=== PATIENT | female | born 1980 | race Hispanic/Latino ===

== ENCOUNTER 2023-01-18 16:51 | Emergency (ER) | payer SELFPAY ==
--- OUTSIDE RECORDS SUMMARY | 2023-01-18 16:55 | XMS REPORT | Continuity of Care Document ---
:1980 Author Organization [facility] t Address [address] [place] [address]. [address] [place] [address] Care Team Providers Name Role Phone PCP, PATIENT DOES NOT HAVE A Primary Care Physician UnavailREKHA Caldwell Attending Clinician Unavailable Rekha Wayne Attending Clinician Provider, Ezeernst Temp Attending Clinician Unavailable Doctor Unassigned, [place] Attending Clinician Unavailable KANIKA FERRER Attending Clinician Unavailable KANIKA FERRER Attending Clinician Unavailable JOSH SOTO Attending Clinician Unavailable EDUARDO HERNANDEZ Attending Clinician Unavailable Sharron Jack MD Attending Clinician RADHA MIRANDA Attending Clinician Unavailable REKHA ROBIN Admitting Clinician Unavailable Payers Payer Name Policy Type Policy Number Effective Date Expiration Date S ource [employer] [place] [id number] 2022 00:00:00 WOMEN Problems Condition Condition Condition Status Onset Resolution Last Treating Co mments Source Name Details Category Date Date Treatment Clinician Date Obesity Obesity Disease Active 2021-05 Univers (BMI (BMI 0-31 ity of 30-39.9) 30-39.9) 00:00: [place] [address] Medical Branch Tobacco Tobacco Disease Active 2021-05 Univers use use 0-31 ity of disorder disorder 00:00: [place] [address] Medical Branch Elevated Elevated Disease Active 2021-05 Unive rs blood blood 0-31 ity of pressure pressure 00:00: [place] reading reading 00 Medical without without Branch diagnosis diagnosis of of hypertensi hypertensi on on History of History of Disease Active 2021-05 U nivers bilateral bilateral 0-31 ity of tubal tubal 00:00: [place] ligation ligation 00 Medica l Branch No known No known Disease Unive rs active active ity of problems problems [facility] Allergies, Adverse Reactions, Alerts Allergy Allergy Status Severity Reaction(s) Onset Inactive Treating Comm ents Source Name Type Date Date Clinician RUY DRUG Active Other-Cmnt 2021-05 Unive rs INGREDI 0-29 ity of 00:00: [place] 00 Medical Branch Codeine Propensi Active Other - See 2021-05 Pain per Univers ty to comments 0- pt report ity o f adverse 00:00: [place] reaction 00 Medical s Branch NO KNOWN Drug Active Univers ALLERGIE Class ity of S [facility] Social History Social Habit Start Date Stop Date Quantity Comments Source History of Cigarette Smoker Universi ty of tobacco use [facility] Alcohol intake 2022-05-01 2022-05-01 Ex-drinker [facility] 00:00:00 00:00:00 (finding) [facility] Exposure to 2022-03-13 2022-03-23 Not sure [facility] SARS-CoV-2 00:00:00 10:54:00 [facility] (event) Branch Tobacco use and 2022-03-21 2022-03-21 Smokeless tobacco Un iversity of exposure 00:00:00 00:00:00 non-user [facility] Tobacco Comment 2022-03-21 2022-03-21 Social smoker Univer sity of 00:00:00 00:00:00 [facility] Sex Ass[birth year] At [birth year] Universit y of 00:00:00 00:00:00 [facility] Smoking Status Start Date Stop Date Source Tobacco smoking consumption [facility] Occasional tobacco smoker 2022-03-21 00:00:00 Un iversity of [facility] Medications Ordered Filled Start Stop Current Ordering Indication Dosage Frequency Signature Comments Components Source Medication Medication Date Date Medication? Clinician (SIG) Name Name tizanidine 2021-05 Yes Take by Univ ers HCl 0-29 mouth. ity of (TIZANIDINE 13:19: [place] ORAL) Medical Branch tizanidine 2021-05 Yes Take by Univ ers HCl 0-29 mouth. ity of (TIZANIDINE 13:19: [place] ORAL) Medical Branch tizanidine 2021-05 Yes Take by Univ ers HCl 0-29 mouth. ity of (TIZANIDINE 13:19: [place] ORAL) 32 Medical Branch GABAPENTIN 2021-05 Yes Take by Univ ers ORAL 0-29 mouth. ity of 13:13: [place] 38 Medical Branch GABAPENTIN 2021-05 Yes Take by Univ ers ORAL 0-29 mouth. ity of 13:13: [place] [address] Medical Branch GABAPENTIN 2021-05 Yes Take by Univ ers ORAL 0-29 mouth. ity of 13:13: [place] 38 Medical Branch acetaminoph 2018-0 Yes 1{tbl} Take 1 Un dejuan en-codeine 9-13 tablet by ity of (TYLENOL-CO 00:00: mouth [place] DEINE #3) 00 every 4 Medical 300-30 mg (four) Branch tablet hours as needed for Pain (scale 7-10). naproxen 2018-0 Yes 550mg Take 1 Univer s sodium 550 9-13 tablet by ity of mg tablet 00:00: mouth 2 00 (two) Medical times Branch daily with meals. cyclobenzap 2018-0 Yes 5mg Take 1 Univ ers rine 5 mg 9-13 tablet by ity o f tablet 00:00: mouth 3 00 (three) Medical times Branch daily. acetaminoph 2018-0 Yes 1{tbl} Take 1 Un dejuan en-codeine 9-13 tablet by ity of (TYLENOL-CO 00:00: mouth [place] DEINE #3) 00 every 4 Medical 300-30 mg (four) Branch tablet hours as needed for Pain (scale 7-10). naproxen 2018-0 Yes 550mg Take 1 Univer s sodium 550 9-13 tablet by ity of mg tablet 00:00: mouth 2 00 (two) Medical times Branch daily with meals. cyclobenzap 2018-0 Yes 5mg Take 1 Univ ers rine 5 mg 9-13 tablet by ity o f tablet 00:00: mouth 3 [place] 00 (three) Medical times Branch daily. acetaminoph 2018-0 Yes 1{tbl} Take 1 Un dejuan en-codeine 9-13 tablet by ity of (TYLENOL-CO 00:00: mouth [place] DEINE #3) 00 every 4 Medical 300-30 mg (four) Branch tablet hours as needed for Pain (scale 7-10). naproxen 2018-0 Yes 550mg Take 1 Univer s sodium 550 9-13 tablet by ity of mg tablet 00:00: mouth 2 [place] 00 (two) Medical times Branch daily with meals. cyclobenzap Yes 5mg Take 1 Univ ers rine 5 mg 9-13 tablet by ity o f tablet 00:00: mouth 3 [place] 00 (three) Medical times Branch daily. acetaminoph 2021- No 1{tbl} Take 1 U nivers en-codeine 9-13 10-29 tablet by ity of (TYLENOL-CO 00:00: [place] DE[place] #3[place] 00 :00 every 4 Medical 300-30 mg (four) Branch tablet hours as needed for Pain (scale 7-10). naproxen 2021- No 550mg Take 1 Unive rs sodium 550 9-13 10-29 tablet by ity of mg tablet 00:00: 00:00 mouth 2 [place] :[place] (two) Medical times Branch daily with meals. cyclobenzap 2021- No 5mg Take 1 Uni vers rine 5 mg 9-13 10-29 tablet by ity of tablet 00:00: 00:00 mouth 3 [place] 00 :00 (three) Medical times Branch daily. acetaminoph 2021- No 1{tbl} Take 1 U nivers en-codeine 9-13 10-29 tablet by ity of (TYLENOL-CO 00:00: 00:[place] DEINE #3[place] 00 :00 every 4 Medical 300-30 mg (four) Branch tablet hours as needed for Pain (scale 7-10). naproxen 2021- No 550mg Take 1 Unive rs sodium 550 9-13 10-29 tablet by ity of mg tablet 00:00: 00:00 mouth 2 [place] 00 :00 (two) Medical times Branch daily with meals. cyclobenzap 2021- No 5mg Take 1 Uni vers rine 5 mg 9-13 10-29 tablet by ity of tablet 00:00: 00:00 mouth 3 [place] 00 :00 (three) Medical times Branch daily. Immunizations Ordered Filled Immunization Date Status Comments [facility] e Immunization Name Name SARS-COV-2 COVID-19 2021-11-17 Completed Unive rsity of PFIZER MICHELE-SUCROSE 00:00:00 [place] Medical VACCINE (MIKE TOP) Branch SARS-COV-2 COVID-19 2021-11-17 Completed Unive rsity of PFIZER MICHELE-SUCROSE 00:00:00 [place] Medical VACCINE (MIKE TOP) Branch SARS-COV-2 COVID-19 2021-11-17 Completed Unive rsity of PFIZER MICHELE-SUCROSE 00:00:00 [place] Medical VACCINE (MIKE TOP) Branch SARS-COV-2 COVID-19 2021-11-17 Completed Unive rsity of PFIZER MICHELE-SUCROSE 00:00:00 [place] Medical VACCINE (MIKE TOP) Branch SARS-COV-2 COVID-19 2021-11-17 Completed Unive rsity of PFIZER MICHELE-SUCROSE 00:00:00 [place] Medical VACCINE (MIKE TOP) Branch SARS-COV-2 COVID-19 2021-11-17 Completed Unive rsity of PFIZER MICHELE-SUCROSE 00:00:00 [place] Medical VACCINE (MIKE TOP) Branch SARS-COV-2 COVID-19 2021-10-27 Completed Unive rsity of PFIZER MICHELE-SUCROSE 00:00:00 [place] Medical VACCINE (MIKE TOP) Branch SARS-COV-2 COVID-19 2021-10-27 Completed Unive rsity of PFIZER MICHELE-SUCROSE 00:00:00 [place] Medical VACCINE (MIKE TOP) Branch SARS-COV-2 COVID-19 2021-10-27 Completed Unive rsity of PFIZER MICHELE-SUCROSE 00:00:00 [place] Medical VACCINE (MIKE TOP) Branch SARS-COV-2 COVID-19 2021-10-27 Completed Unive rsity of PFIZER MICHELE-SUCROSE 00:00:00 [place] Medical VACCINE (MIKE TOP) Branch SARS-COV-2 COVID-19 2021-10-27 Completed Unive rsity of PFIZER MICHELE-SUCROSE 00:00:00 [place] Medical VACCINE (MIKE TOP) Branch SARS-COV-2 COVID-19 2021-10-27 Completed Unive rsity of PFIZER MICHLEE-SUCROSE 00:00:00 [place] Medical VACCINE (MIKE TOP) Branch Vital Signs Vital Name Observation Time Observation Value Comments Source Systolic blood 2022-03-21 18:07:00 145 mm[Hg] Univer sity of pressure [facility] Diastolic blood 2022-03-21 18:07:00 95 mm[Hg] Unive rsity of pressure [facility] Heart rate 2022-03-21 18:06:00 90 /min [facility] Body temperature 2022-03-21 18:06:00 36.39 [facility] Respiratory rate 2022-03-21 18:06:00 20 /min [facility] Body height 2022-03-21 18:06:00 160 cm [facility] Body weight 2022-03-21 18:06:00 79.833 kg [facility] BMI 2022-03-21 18:06:00 31.18 kg/m2 [facility] Procedures Procedure Date / Time Performing Clinician Source Performed HIV 1/2 AG-AB WITH 2022-03-21 18:50:00 Rekha Robin [facility] REFLEX [facility] PAP SMEAR-LIQUID 2022-03-21 18:50:00 Rekha Robin [facility] BASED-CP [facility] GALV ONLY - SYPHILIS 2022-03-21 18:50:00 Rekha Robin [facility] IGG/IGM [facility] CONSENT/REFUSAL FOR 2022-03-21 17:51:33 Doctor Unassigned, No [facility] DIAGNOSIS AND TREATMENT Name [facility] AUTHORIZATION FOR 2022-01-27 05:01:00 Doctor Unassigned, No [facility] RELEASE OF PHI Name [facility] Encounters Start End Encounter Admission Attending Care Care Encounter Source Date/Time Date/Time Type Type Clinicians Facility Department ID 2022-05-01 2022-05-01 Outpatient Savana ROBIN [facility] [id number] Univers 13:35:00 23:59:00 REKHA corey [facility] 2022-05-01 2022-05-01 Hospital Luis Enrique [facility] [id number] Univers 13:35:00 23:59:00 Encounter Rekha BENAVIDES [id number] leora marrero [facility] [id number] [facility] [id number] [facility] 800 Branch 2022-03-21 2022-03-21 Outpatient Savana ROBIN [facility] [id number] Univers 12:45:00 13:49:32 [facility] 2022-03-21 2022-03-21 Office [facility] [id number] Univers 12:45:00 13:49:32 Visit Rekha Robin [facility] [id number] ity of REGIONAL [id number] Edgardo as MATERNAL [id number] Med ical & CHILD [address] [place] [address] 2022-03-21 2022-03-21 Orders Doctor CHELSIE [id number] Univers 00:00:00 00:00:00 Only Unassigned, PAWAN [id number] ity of [facility] [id number] Edgardo as [id number] [address] 2022-02-24 2022-02-24 Outpatient R KANIKA FERRER [facility] [id number] Univers 13:15:00 13:15:00 KANIKA FERRER ity [facility] 2022-02-11 2022-02-11 Outpatient Savana SOTO [facility] [id number] Univers 14:00:00 14:00:00 ROSJERRODNDA ity o f [facility] 2022-02-06 2022-02-06 Outpatient R EDUARDO HERNANDEZ [facility] [id number] Univers 15:00:00 15:00:00 ity [facility] 2022-02-02 2022-02-02 Letter Sharron Jack [facility] GRIFFIN [id number] Univers 00:00:00 00:00:00 (Out) DAMEON [id number] it y of [place] [id number] [place] [facility] [id number] [facility] 134 Branch 2022-01-27 2022-01-27 Orders Doctor CHELSIE [id number] Univers 00:00:00 00:00:00 Only Unassigned, PAWAN [id number] ity of [facility] [id number] Edgardo as [id number] [address] 2021-11-17 2021-11-17 Outpatient Savana MIRANDA [facility] [id number] Univers 15:00:00 15:00:00 RADHA corey [facility] 2021-11-17 2021-11-17 Outpatient R [facility] [id number] Univers 15:00:00 15:00:[address] [facility] Results Test Description Test Time Test Comments Results Result Comments Source GALV ONLY - [place]PH[place] IGG/IGM 2022-03-22 14:42:10 Test Item Value Reference Range Interpretation Comme nts Syphilis IgG/IgM (test code = Non-reactive Non-reactive 00088-8) ANIL (test code = ANIL) Non-reactive - No serologic evidence of T. pallidum infection. Cannot exclude incubating or early syphilis. Submit a second specimen in 2-4 weeks if syphilis is clinically suspected. Equivocal - Further testing to follow. Reactive - Further testing to follow. Lab Interpretation (test code = Normal 24001-3) [facility] [id number] 14:42:10 Test Item Value Reference Range Interpretation Comments Syphilis IgG/IgM (test Non-reactive Non-reactive code = 57488-4) ANIL (test code = ANIL) Non-reactive - No serologic evidence of T. pallidum infection. Cannot exclude incubating or early syphilis. Submit a second specimen in 2-4 weeks if syphilis is clinically suspected. Equivocal - Further testing to follow. Reactive - Further testing to follow. Lab Interpretation (test Normal code = 39258-8) [facility] AG-AB WITH [id number] 00:35:41 Test Item Value Reference Range Interpretation Comments HIV Negative Negative Semi-quantitative (test code = 73877-8) ANIL (test code = Non-reactive for HIV-1 ANIL) antigen and HIV-1/HIV-2 antibodies. ?No laboratory evidence of HIV infection. ?Repeat in 2-4 weeks if acute HIV infection is suspected. [facility] 1/2 AG-AB WITH [id number] 00:35:41 Test Item Value Reference Range Interpretation Comments HIV Negative Negative Semi-quantitative (test code = 41031-2) ANIL (test code = Non-reactive for HIV-1 ANIL) antigen and HIV-1/HIV-2 antibodies. ?No laboratory evidence of HIV infection. ?Repeat in 2-4 weeks if acute HIV infection is suspected. [facility]
--- NOTE | 2023-01-18 19:18 | RAD REPORT ---
EXAM DESCRIPTION: RAD - Shoulder Left 2 View - 01/18/2023 6:55 pm CLINICAL HISTORY: shoulder pain COMPARISON: <Comparisons> FINDINGS: No acute fracture or dislocation seen.
--- NOTE | 2023-01-18 19:20 | EDPHYS ---
Physician Documentation [facility] Name: Cheyenne Givens Age: 42 yrs Sex: Female : 1980 Arrival Date: 01/18/2023 Time: 16:51 Bed DX5 Private MD: ED Physician Agus Zarate HPI: 01/18 17:45 This 42 yrs old Female presents to ER via Ambulatory with complaints of cp Shoulder Pain. 17:45 The patient or guardian complains of an injury, pain, that is acute. left shoulder. cp Context: resulted from being arrested. patient reports being arrested this past Wednesday and pain started after being hand cuffed with her hands behind her, The patient reports no decreased range of motion. 17:45 Associated signs and symptoms: Pertinent negatives: chest pain, neck pain, shortness of cp breath, tingling, Weakness in left hand and left arm. Severity of symptoms: in the emergency department the symptoms are unchanged, despite home interventions. Historical: - Allergies: 19:32 No Known Allergies; kl - Immunization history:: Adult Immunizations not immunized. - Social history:: Smoking status: Patient denies any tobacco usage or history of. ROS: 17:50 MS/extremity: Positive for pain, swelling, tenderness, of the left shoulder. cp 17:50 Constitutional: Negative for body aches, chills, fever, poor PO intake. cp 17:50 Neck: Negative for pain with movement, pain at rest, stiffness. 17:50 Cardiovascular: Positive for chest pain, of the left lateral upper chest, Negative for edema, palpitations. 17:50 Constitutional: Negative for fever, chills, and weight loss. cp 17:50 Respiratory: Negative for cough, shortness of breath, wheezing. cp 17:50 Abdomen/GI: Negative for abdominal pain, nausea, vomiting, and diarrhea. 17:50 Back: Negative for pain at rest, pain with movement. 17:50 Neuro: Negative for altered mental status, dizziness, headache, numbness, tingling, weakness. 17:50 All other systems are negative. cp Exam: 17:55 Constitutional: The patient appears in no acute distress, alert, awake, cp non-diaphoretic, non-toxic, well developed, well nourished. 17:55 Head/Face: Normocephalic, atraumatic. cp 17:55 Eyes: Periorbital structures: appear normal, Sclera: no appreciated abnormality, Lids and lashes: appear normal, bilaterally. 17:55 ENT: External ear(s): are unremarkable, Nose: is normal, Mouth: Lips: moist, Oral mucosa: pink and intact, moist. 17:55 Neck: C-spine: vertebral tenderness, is not appreciated, crepitus, is not appreciated, ROM/movement: is normal, is supple, without pain, no range of motions limitations. 17:55 Chest/axilla: Inspection: normal, Palpation: crepitus, is not appreciated, tenderness, that is mild, of the left lateral upper posterior chest and left lateral upper anterior chest. 17:55 Respiratory: the patient does not display signs of respiratory distress, Respirations: normal, no use of accessory muscles, no retractions, no shallow respirations, labored breathing, is not present, Breath sounds: are clear throughout, no decreased breath sounds, no stridor, no wheezing. 17:55 Abdomen/GI: Inspection: abdomen appears normal, Palpation: abdomen is soft and non-tender. 17:55 Musculoskeletal/extremity: Extremities: noted in the left shoulder: pain, tenderness, mild swelling lateral shoulder, ROM: limited passive range of motion due to pain, in the left shoulder, Pulses: noted to be 2+ in the left radial artery, the left hand and left arm Sensation intact. MDM: 18:04 Patient medically screened. cp 19:19 Differential diagnosis: Anterior dislocation with fracture, Anterior dislocation kb without fracture, Posterior dislocation with fracture, Posterior dislocation without fracture, humeral head fracture, tendonitis, strain. Data reviewed: vital signs, nurses notes. Counseling: I had a detailed discussion with the patient and/or guardian regarding the historical points, exam findings, and any diagnostic results supporting the discharge/admit diagnosis, radiology results, the need for outpatient follow up, a family practitioner, to return to the emergency department if symptoms worsen or persist or if there are any questions or concerns that arise at home. 01/18 18:07 Order name: Shoulder Left 2 View; Complete Time: 19:19 EDMS 01/18 18:28 Order name: Sling; Complete Time: 19:30 cp Administered Medications: 19:20 Drug: Ketorolac IM 30 mg Route: IM; Site: left deltoid; kl 19:31 Follow up: Response: No adverse reaction kl Disposition Summary: 01/18/23 19:20 Discharge Ordered Location: Home kb Condition: Stable kb Diagnosis - Pain in left shoulder kb Followup: kb - With: Emergency Department - When: As needed - Reason: Worsening of condition Followup: kb - With: Private Physician - When: 2 - 3 days - Reason: Recheck today's complaints, Continuance of care, Re-evaluation by your physician Discharge Instructions: - Discharge Summary Sheet kb - Musculoskeletal Pain kb - Shoulder Pain, [id number] kb Forms: - Medication Reconciliation Form kb - Thank You Letter kb - Antibiotic Education kb - Prescription Opioid Use kb - Patient Portal Instructions kb - Leadership Thank You Letter kb Signatures: Dispatcher [employer] EDMS Opal Tapia FNP-C BACTERIOLOGIST INDUSTRIAL-Tiara Duval RN RN Andrew Falcon PA PA cp Corrections: (The following items were deleted from the chart) 18:53 18:11 Shoulder Left 2 View+RAD.RAD.BRZ ordered. EDSC EDSC 19:32 19:32 PMHx: GALLSTONES; kl 01/19 18:45 01/18 19:21 Constitutional: Negative for fever, chills, and weight loss, kb cp
--- NOTE | 2023-01-18 19:20 | ER ---
Nurse's Notes [facility] Name: Cheyenne Givens Age: 42 yrs Sex: Female : 1980 Arrival Date: 01/18/2023 Time: 16:51 Bed DX5 Private MD: Diagnosis: Pain in left shoulder Presentation: 01/18 17:59 Chief complaint: Patient states: left shoulder pain. Coronavirus screen: At this time, iw the client does not indicate any symptoms associated with coronavirus-19. Ebola Screen: Patient negative for fever greater than or equal to 101.5 degrees Fahrenheit, and additional compatible Ebola Virus Disease symptoms Patient denies exposure to infectious person. Patient denies travel to an Ebola-affected area in the 21 days before illness onset. No symptoms or risks identified at this time. Initial Sepsis Screen: Does the patient meet any 2 criteria? No. Patient's initial sepsis screen is negative. Does the patient have a suspected source of infection? No. Patient's initial sepsis screen is negative. Risk Assessment: Do you want to hurt yourself or someone else? Patient reports no desire to harm self or others. 17:59 Method Of Arrival: Ambulatory iw 17:59 Acuity: KERWIN 4 iw Historical: - Allergies: 19:32 No Known Allergies; kl - Immunization history:: Adult Immunizations not immunized. - Social history:: Smoking status: Patient denies any tobacco usage or history of. Screenin:32 [facility] ED Fall Risk Assessment (Adult) History of falling in the last 3 months, kl including since admission No falls in past 3 months (0 pts) Confusion or Disorientation No (0 pts) Intoxicated or Sedated No (0 pts) Impaired Gait No (0 pts) Mobility Assist Device Used No (0 pt) Altered Elimination No (0 pt) Score/Fall Risk Level 0 - 2 = Low Risk Oriented to surroundings, Maintained a safe environment. Abuse screen: Denies threats or abuse. Nutritional screening: No deficits noted. Tuberculosis screening: No symptoms or risk factors identified. Assessment: 19:31 General: Appears in no apparent distress. Behavior is calm, cooperative. Pain: Complains of pain in left shoulder Pain currently is 5 out of 10 on a pain scale. Neuro: No deficits noted. Cardiovascular: No deficits noted. Respiratory: No deficits noted. GI: No deficits noted. No signs and/or symptoms were reported involving the gastrointestinal system. : No deficits noted. No signs and/or symptoms were reported regarding the genitourinary system. EENT: No deficits noted. No signs and/or symptoms were reported regarding the EENT system. Musculoskeletal: Circulation, motion, and sensation intact. Capillary refill < 3 seconds, Range of motion: limited in left arm and left shoulder Reports pain in left arm and left shoulder. ED Course: 16:53 Patient arrived in ED. mg5 16:54 Andrew Jacobs PA is PHCP. cp 16:54 Agus Zarate MD is Attending Physician. cp 18:00 Triage completed. iw 18:00 Arm band placed on. iw 18:56 Shoulder Left 2 View In Process Unspecified. EDMS 19:01 PHCP role handed off by Andrew Jacobs PA kb 19:01 [facility] kb 19:33 No provider procedures requiring assistance completed. Patient did not have IV access kl during this emergency room visit. Sling applied to left arm. Administered Medications: 19:20 Drug: Ketorolac IM 30 mg Route: IM; Site: left deltoid; kl 19:31 Follow up: Response: No adverse reaction kl Medication: 19:33 VIS not applicable for this client. kl Outcome: 19:20 Discharge ordered by . kb 19:33 Discharged to home ambulatory. kl 19:33 Condition: stable 19:33 Discharge instructions given to patient, Instructed on discharge instructions, follow up and referral plans. Demonstrated understanding of instructions, follow-up care. 19:33 Patient left the ED. kl Signatures: Dispatcher [employer] EDGA Opal Tapia FNP-C FNP-Ckb Lewis, Kimberly, RN RN Bernie Rushing RN RN Andrew Jacobs PA PA cp [place], [place] mg5 Corrections: (The following items were deleted from the chart) 19:32 19:32 PMHx: GALLSTONES; kl kl
[2023-01-18] MEDS ORDERED: KETOROLAC 30 MG/ML INJ ONE (19:36)
== END 2023-01-18 19:33 | disposition home or self-care (01) ==
LOC: ER 16:51
DX: M25.512 Pain in left shoulder (principal)
CPT/HCPCS: 96372; 99284